=== PATIENT | male | born 1945 | race Caucasian/White ===

== ENCOUNTER 2018-10-18 09:19 | Day surgery (SDC) | payer OTHER ==
[~2018-10-18] VITALS: Ht 172.7 cm; Wt 74.2 kg
[~2018-10-18 09:19] MED LIST: CYCL10 PO; GLUC500 PO; HYDACE5 PO; HYDCHL25 PO; OXYACE5T PO; ZESTORETIC 20-121 EA PO
[2018-10-18] MEDS ORDERED: VALACYCLOVIR1000 MG (10:14)
== END 2018-10-18 13:23 | disposition home or self-care (01) ==
LOC: ORSCSDS 09:19
PROVIDERS: Orthopaedic Surgery
PROC: 01X40Z4 Transfer Ulnar Nerve to Ulnar Nerve, Open Approach (ICD-10-PCS; principal; 2018-10-18 10:30)
DX: G56.21 Lesion of ulnar nerve, right upper limb (principal); I10 Essential (primary) hypertension; Z79.899 Other long term (current) drug therapy
CPT/HCPCS: J0171; J0690; J2250; J2704; J3010; J7120

== ENCOUNTER 2018-12-29 15:38 | Emergency (ER) | payer OTHER ==
[~2018-12-29] VITALS: Ht 180.3 cm; Wt 74.8 kg
[~2018-12-29 15:38] MED LIST changes: +VALACYCLOVIR1000 MG
== END 2018-12-29 18:04 | disposition home or self-care (01) ==
LOC: ER 15:38
DX: S83.92XA Sprain of unspecified site of left knee, initial encounter (principal); I10 Essential (primary) hypertension; Z79.899 Other long term (current) drug therapy; W18.39XA Other fall on same level, initial encounter
CPT/HCPCS: 73562-LT; 99283-25

== ENCOUNTER 2019-12-23 15:40 | Emergency (ER) | payer OTHER ==
[~2019-12-23] VITALS: Ht 175.3 cm; Wt 74.8 kg
== END 2019-12-23 16:56 | disposition home or self-care (01) ==
LOC: ER 15:40
DX: S06.0X1A Concussion with loss of consciousness of 30 minutes or less, initial encounter (principal); S16.1XXA Strain of muscle, fascia and tendon at neck level, initial encounter; I10 Essential (primary) hypertension; Z79.899 Other long term (current) drug therapy; W01.10XA Fall on same level from slipping, tripping and stumbling with subsequent striking against unspecified object, initial encounter
CPT/HCPCS: 70450; 72125; 99284-25

== ENCOUNTER 2020-03-17 06:22 | Day surgery (SDC) | payer OTHER ==
[~2020-03-17] VITALS: Ht 177.8 cm; Wt 79.2 kg
[~2020-03-17 06:22] MED LIST changes: +VITAMIN D310 MC4 PO
--- NOTE | 2020-03-17 07:07 | NUR ---
Ambulatory in Day Surgery History, Chart, Medications and Allergies reviewed before start of procedure. Lungs clear T/O to Auscultation. Pre-Op teaching done. Pt verbalizes understanding.
--- NOTE | 2020-03-17 12:07 | NUR ---
PT ARRIVED TO UNIT FROM PACU. A&OX4. DENIES PAIN, N/V OR SOB. SLIGHT GROSS MOVEMENT NOTED TO LLE. PT REPORTS NUMBNESS FROM KNEES DOWN. DRESSING TO L KNEE CDI. POLAR PACK IN PLACE. CALL LIGHT IN REACH.
--- NOTE | 2020-03-17 13:25 | NUR ---
PT ABLE TO LIFT LEFT OFF OF BED AND WIGGLE TOES.
--- NOTE | 2020-03-17 16:03 | NUR ---
MEDICATED PT PER ORDERS FOR PAIN. THERAPY IN TO WORK W/PT.
--- NOTE | 2020-03-17 16:16 | NUR ---
AMBULATING IN [place] W/THERAPIST.
--- NOTE | 2020-03-17 16:59 | NUR ---
SUMMARY NO ACUTE CHANGES SINCE ARRIVING TO UNIT FROM PACU. WORKED W/THERAPY, AMBULATED IN [place] AND IS NOW SITTING IN RECLINER WITH LEGS ELEVATED. REPORTS PAIN 5-6/10; STATES THIS IS TOLERABLE AND DENIES NEED FOR FURTHER PAIN MEDS AT THIS TIME. TOLERATING DIET AND VOIDED. TXA COMPLETED PER ORDERS. ABX INFUSING NOW PER ORDERS. CALL LIGHT IN REACH.
--- NOTE | 2020-03-18 03:37 | NUR ---
SHIFT SUMMARY: POD 1 LEFT TOTAL KNEE REPLACEMENT LEFT KNEE AQUACEL IS C/D/I. PATIENT IS ALERT AND ORIENTED X4 WHILE AWAKE. PATIENT HAS BEEN SLEEPING MAJORITY OF THE SHIFT BUT IS EASILY AROUSABLE. PAIN REPORTS NOT HAVING PAIN BUT HAS BEEN GIVEN HIS SCHEDULED TYLENOL PO. HE IS VOIDING AND SHARI PO INTAKE. HE AMBULATED THE HALLS ONCE BEFORE FALLING ASLEEP. HE IS A SBA WITH GAIT BELT AND FWW. HE HAS RECIEVED HIS ABX IV AND SHARI WELL. HE HAS BEEN DOING HIS EXERCISES FROM PHYSICAL THERAPY. CALLS APPROPRIATELY. CALL LIGHT WITHIN REACH. PATIENT IS CURRENTLY SNORING LAYING IN BED. VS ARE WNL ON RA. THE PLAN IS TO POSSIBLY BE DISCHARGED HOME TODAY.
[2020-03-18 05:39] LABS: BASOPHILS ABSOLUTE AUTO 0.02 K/mm3 (0.00-0.23); BASOPHILS PERCENT AUTO 0 % (0-2); EOSINOPHILS ABSOLUTE AUTO 0.02 K/mm3 (0.00-0.68); EOSINOPHILS PERCENT AUTO 0 % (0-6); Hematocrit 27.2 % (37.0-53.0); Hemoglobin 8.6 g/dL (13.5-17.5); IMMATURE GRAN ABSOLUTE AUTO 0.02 K/mm3 (0.00-0.10); IMMATURE GRAN PERCENT AUTO 0 % (0-1); LYMPHOCYTES ABSOLUTE AUTO 0.84 K/mm3 (0.84-5.20); LYMPHOCYTES PERCENT AUTO 10 % (21-46); MONOCYTES ABSOLUTE AUTO 0.31 K/mm3 (0.16-1.47); MONOCYTES PERCENT AUTO 4 % (4-13); Mean Corpuscular HGB 29.6 pg (26.0-34.0); Mean Corpuscular HGB Conc 31.6 g/dL (31.5-36.5); Mean Corpuscular Volume 94 fL (80-100); Mean Platelet Volume 9.7 fL (9.1-12.4); NEUTROPHILS ABSOLUTE AUTO 7.37 K/mm3 (1.96-9.15); NEUTROPHILS PERCENT AUTO 86 % (41-73); Platelet Count 188 K/mm3 (150-400); RDW Coefficient Variation 13.6 % (11.7-14.2); RDW Standard Deviation 46.6 fL (35.1-46.3); Red Blood Cell Count 2.91 M/mm3 (4.30-5.90); White Blood Cell Count 8.58 K/mm3 (4.00-11.30)
[2020-03-18 06:00] LABS: Bun/Creatinine Ratio 23.8 (12.0-20.0); Calcium, Blood 8.7 mg/dL (8.5-10.1); Creatinine, Blood 1.51 mg/dL (0.60-1.20); Potassium, Blood 4.3 mmol/L (3.5-5.5)
[2020-03-18] MEDS ORDERED: ACET500 PO (09:50)
[2020-03-18] MEDS ORDERED: OXYC5 PO (09:50)
[2020-03-18] MEDS ORDERED: ASPI81CH PO (09:50)
--- NOTE | 2020-03-18 11:22 | NUR ---
discharged IV DC'D, CATHETER INTACT. DC INSTRUCTIONS REVIEWED BY CATHERINE VELÁSQUEZ. PT VERBALIZED UNDERSTANDING. PT LEFT UNIT IN WC W/POSSESSIONS, POLAR PACK, DRESSINGS, AND DC INSTRUCTIONS IN HAND TO RIDE AWAITING OUTSIDE.
--- NOTE | 2020-03-18 13:27 | NUR ---
03/18/20 1327 Bernadette Maxwell VERIFICATIONS: EDIT CHART.
== END 2020-03-18 11:16 | disposition home or self-care (01) ==
LOC: ORSCMMR 06:22 → ORD 07:30 → ORSCMMR 07:30 → SURS 11:40 → ORSCMMR 03-18 11:16
PROVIDERS: Orthopaedic Surgery
PROC: 8E0Y0CZ Robotic Assisted Procedure of Lower Extremity, Open Approach (ICD-10-PCS; principal; 2020-03-17 07:30)
PROC: 0SRD0J9 Replacement of Left Knee Joint with Synthetic Substitute, Cemented, Open Approach (ICD-10-PCS; principal; 2020-03-17 07:30)
DX: M17.12 Unilateral primary osteoarthritis, left knee (principal); Z23 Encounter for immunization; I10 Essential (primary) hypertension; N18.9 Chronic kidney disease, unspecified; Z79.899 Other long term (current) drug therapy
CPT/HCPCS: 27447; S2900; 36415; 73560-LT; 80048; 83735; 85025; 88300; 97110; 97110-CQ; 97116; 97116-CQ; 97162; 97530-CQ; A9270; C1713; C1776; G0008; J0171; J0690; J0735; J1100; J1885; J2250; J2370; J2405; J2704; J2795; J3010; J7120; Q2038

== ENCOUNTER 2020-05-20 06:59 | Day surgery (SDC) | payer OTHER ==
[~2020-05-20] VITALS: Ht 172.7 cm; Wt 74.7 kg
[~2020-05-20 06:59] MED LIST changes: +ACET500 PO; +ASPI81CH PO; +OXYC5 PO
[2020-05-20] MEDS ORDERED: GLUC500 (07:35)
== END 2020-05-20 09:18 | disposition home or self-care (01) ==
LOC: ORSCSDS 06:59
PROVIDERS: Student in an Organized Health Care Education/Training Program
PROC: 0DBL8ZX Excision of Transverse Colon, Via Natural or Artificial Opening Endoscopic, Diagnostic (ICD-10-PCS; principal; 2020-05-20 08:00)
DX: Z12.11 Encounter for screening for malignant neoplasm of colon (principal); D12.3 Benign neoplasm of transverse colon; K57.30 Diverticulosis of large intestine without perforation or abscess without bleeding; K64.8 Other hemorrhoids; K64.4 Residual hemorrhoidal skin tags; D64.9 Anemia, unspecified; I10 Essential (primary) hypertension; E55.9 Vitamin D deficiency, unspecified; Z79.899 Other long term (current) drug therapy
CPT/HCPCS: 88305; J0330; J0461; J2405; J2704; J7120

== ENCOUNTER 2020-07-10 17:10 | Emergency (ER) | payer OTHER ==
[~2020-07-10] VITALS: Ht 175.3 cm; Wt 74.8 kg
[~2020-07-10 17:10] MED LIST changes: +GLUC500
[2020-07-10 17:41] LABS: BASOPHILS ABSOLUTE AUTO 0.02 K/mm3 (0.00-0.23); BASOPHILS PERCENT AUTO 1 % (0-2); EOSINOPHILS ABSOLUTE AUTO 0.19 K/mm3 (0.00-0.68); EOSINOPHILS PERCENT AUTO 5 % (0-6); Hematocrit 32.1 % (37.0-53.0); IMMATURE GRAN ABSOLUTE AUTO 0.01 K/mm3 (0.00-0.10); IMMATURE GRAN PERCENT AUTO 0 % (0-1); LYMPHOCYTES ABSOLUTE AUTO 0.94 K/mm3 (0.84-5.20); LYMPHOCYTES PERCENT AUTO 22 % (21-46); MONOCYTES ABSOLUTE AUTO 0.42 K/mm3 (0.16-1.47); MONOCYTES PERCENT AUTO 10 % (4-13); Mean Corpuscular HGB Conc 31.2 g/dL (31.5-36.5); Mean Corpuscular Volume 90 fL (80-100); Mean Platelet Volume 9.1 fL (9.1-12.4); NEUTROPHILS ABSOLUTE AUTO 2.61 K/mm3 (1.96-9.15); NEUTROPHILS PERCENT AUTO 62 % (41-73); Platelet Count 267 K/mm3 (150-400); RDW Coefficient Variation 18.2 % (11.7-14.2); RDW Standard Deviation 60.4 fL (35.1-46.3); Red Blood Cell Count 3.57 M/mm3 (4.30-5.90); White Blood Cell Count 4.19 K/mm3 (4.00-11.30)
[2020-07-10 18:02] LABS: Alanine Aminotransfer (ALT/SGP 24 U/L (12-78); Albumin, Blood 3.4 g/dL (3.4-5.0); Albumin/Globulin Ratio 0.9 (0.8-1.8); Alk Phos 130 U/L (50-136); Anion Gap 4 mmol/L (6-16); Aspartate Aminotrans (AST/SGOT 19 U/L (12-37); Bilirubin, Total 0.3 mg/dL (0.1-1.0); Blood Urea Nitrogen 23 mg/dL (8-24); Bun/Creatinine Ratio 17.8 (12.0-20.0); CO2, Blood 27 mmol/L (21-32); Chloride, Blood 109 mmol/L (98-108); Creatinine, Blood 1.29 mg/dL (0.60-1.20); Globulin, Blood 3.8 g/dL (2.2-4.0); Glomerular Filtration Rate 58 (60-); Glucose, Blood 95 mg/dL (70-99); Potassium, Blood 4.1 mmol/L (3.5-5.5); Sodium, Blood 140 mmol/L (136-145); Total Protein, Blood 7.2 g/dL (6.4-8.2); Troponin I <0.015 ng/mL (0.000-0.040)
[2020-07-10] MEDS ORDERED: OXYM.05NI (21:58)
[2020-07-10] MEDS ORDERED: Flonase 0.05% N16 GM (21:58)
== END 2020-07-10 22:10 | disposition home or self-care (01) ==
LOC: ER 17:10
PROVIDERS: Physician Assistant
DX: J32.2 Chronic ethmoidal sinusitis (principal); R51.9 Headache, unspecified; Z79.899 Other long term (current) drug therapy; V89.2XXA Person injured in unspecified motor-vehicle accident, traffic, initial encounter
CPT/HCPCS: 70450; 80053; 84484; 85025; 93005; 93010; 99284-25; A9270

== ENCOUNTER 2020-12-29 06:16 | Inpatient (IN) | payer OTHER ==
[~2020-12-29] VITALS: Ht 175.3 cm; Wt 78.4 kg
[~2020-12-29 06:16] MED LIST changes: +FERSU300 PO; +Flomax0.4 MG PO; +Flonase 0.05% N16 GM; +Lisinopril-Hct1 EAC4 PO; +MAGNESIUM PO; +MIRALAX17 GM PO; +NAPR220 PO; +OXYM.05NI; +PEPCID40 MG PO
--- NOTE | 2020-12-29 07:27 | NUR ---
Ambulatory in Day SurgeryB[facility] Paws warming gown applied. Surgical site prepped with 2% Chlorhexidine cloth wipe. History, Chart, Medications and Allergies reviewed before start of procedure.Lungs clear T/O to Auscultation. Patient confirms NPO status and agrees with scheduled surgery. Patient reports completing Chlorhexadine shower X2 prior to admission to hospital.
--- NOTE | 2020-12-29 08:25 | NUR ---
PATIENT'S ANSTIENOLGIST ORDERED A A1C FOR THE PATIENT, RESULTS WEE BACK AT 0823, CALLED THE OR CREW AND MADE THEM AWARE.
--- NOTE | 2020-12-29 09:38 | NUR ---
12/29/20 0938 Himanshu Keller DRY SCAB NOTED ON ANTERIOR UPPER ARM. MD NOTIFIED, NO NEW ORDERS. DR. GIRON PERFORMED BLOCK IN OR PRE OPERATIVELY.
[2020-12-29] MEDS ORDERED: OXYC5 PO (16:15)
--- NOTE | 2020-12-29 17:35 | NUR ---
DISCHARGE CLEARED THERAPY, EATING, DRINKING, & VOIDING. PAIN WELL TOLERABLE & PT EDUCATED THAT PAIN WILL INCREASE w/ TIME. STRESSED IMPORTANCE OF ICE & ELEVATION. DRSAJ, SCRIPT, & POLAR PACK SENT w/ PT. ESCORTED OUT VIA W/C
== END 2020-12-29 17:30 | disposition home or self-care (01) | DRG 483 ==
LOC: SURS 06:16 → PRE IP 07:30 → SURS 14:25
PROVIDERS: ADMIT Orthopaedic Surgery
PROC: 0RRK00Z Replacement of Left Shoulder Joint with Reverse Ball and Socket Synthetic Substitute, Open Approach (ICD-10-PCS; principal; 2020-12-29 07:30)
DX: M12.812 Other specific arthropathies, not elsewhere classified, left shoulder (principal); M75.122 Complete rotator cuff tear or rupture of left shoulder, not specified as traumatic; D63.1 Anemia in chronic kidney disease; I12.9 Hypertensive chronic kidney disease with stage 1 through stage 4 chronic kidney disease, or unspecified chronic kidney disease; N18.9 Chronic kidney disease, unspecified; N40.0 Benign prostatic hyperplasia without lower urinary tract symptoms; K21.9 Gastro-esophageal reflux disease without esophagitis; Z20.822 Contact with and (suspected) exposure to COVID-19
CPT/HCPCS: 73030; 82947; 83036; 97110; 97161; 97530; A9270; C1776; J0171; J0690; J0735; J1100; J1885; J2250; J2370; J2405; J2704; J2795; J3010; J7120

== ENCOUNTER 2022-03-22 10:12 | Day surgery (SDC) | payer OTHER ==
[~2022-03-22] VITALS: Ht 172.7 cm; Wt 77.5 kg
[~2022-03-22 10:12] MED LIST changes: +ATOR40TA PO; +Acetaminophen650 M1 PO; +NAPR220; +TOCO1000 PO
--- NOTE | 2022-03-22 16:02 | NUR ---
PT ARRIVED TO UNIT FROM PACU. UNABLE TO WIGGLE TOES. DENIES FEELING FROM THIGH DOWN. WILL AMBULATE ONCE PATIENT BEGINS HAVING SENSATION. BLADDER SCAN PRN R/T SPINAL. AQUACEL DRESSING CDI. POLAR ESPERANZA IN PLACE PT [id number], VSS. PT TOLERATING PO WELL PROVIDED WATER AND JELLO AT THIS TIME.
--- NOTE | 2022-03-22 18:40 | NUR ---
PT UP AND AMBULATING. FULL SENSATION IN LEGS. PT WALKS QUICKLY AND NEEDS TO BE REMINDED TO SLOW DOWN AND STAY IN HIS WALKER. ABLE TO VOID, 50ML BUT HAD A POST VOID RESIDUAL OF 68. HE REPORTS FREQUENT SMALL VOIDS DURING NIGHT AT BASELINE. IV FLUIDS INFUSING AT THIS TIME. CONTINUES TO DENY PAIN. DRESSING CDI.
[2022-03-23 04:16] LABS: BASOPHILS ABSOLUTE AUTO 0.02 K/mm3 (0.00-0.23); BASOPHILS PERCENT AUTO 0 % (0-2); EOSINOPHILS ABSOLUTE AUTO 0.07 K/mm3 (0.00-0.68); EOSINOPHILS PERCENT AUTO 1 % (0-6); Hematocrit 31.7 % (37.0-53.0); Hemoglobin 10.5 g/dL (13.5-17.5); IMMATURE GRAN ABSOLUTE AUTO 0.04 K/mm3 (0.00-0.10); IMMATURE GRAN PERCENT AUTO 0 % (0-1); LYMPHOCYTES ABSOLUTE AUTO 0.65 K/mm3 (0.84-5.20); LYMPHOCYTES PERCENT AUTO 7 % (21-46); MONOCYTES ABSOLUTE AUTO 0.47 K/mm3 (0.16-1.47); MONOCYTES PERCENT AUTO 5 % (4-13); Mean Corpuscular HGB 31.4 pg (26.0-34.0); Mean Corpuscular HGB Conc 33.1 g/dL (31.5-36.5); Mean Corpuscular Volume 95 fL (80-100); NEUTROPHILS ABSOLUTE AUTO 8.23 K/mm3 (1.96-9.15); NEUTROPHILS PERCENT AUTO 87 % (41-73); Platelet Count 159 K/mm3 (150-400); RDW Coefficient Variation 13.2 % (11.7-14.2); Red Blood Cell Count 3.34 M/mm3 (4.30-5.90); White Blood Cell Count 9.48 K/mm3 (4.00-11.30)
--- NOTE | 2022-03-23 04:40 | NUR ---
POD1 RIGHT TOTAL KNEE. SENSATION AND CIRCULATION REMAINS INTACT IN RLE. DRESSING IS C/D/I. VSS. PT SLEPT WELL T/O THE NIGHT. MEDICATED FOR PAIN WITH SCHEDULED AND OXY. PT AMBULATED IN THE HALLS LAST NIGHT WITH THE MEDICAL STAFF SPECIALIST. PT TOLLERATING PO INTAKE W/O N/V. PT VOIDED WITH SOME DIFFICULT, PT STATED AT HOME HE VOIDS SMALL AMOUNTS VERY FREQUENTLY. PLAN FOR PT TO WORK WITH PT THIS AM AND D/C HOME. THE PATIENT IS CURRENTLY SLEEPING, IN NO DISTRESS, CALL LIGHT IN REACH
[2022-03-23 04:52] LABS: Bun/Creatinine Ratio 22.7 (12.0-20.0); Calcium, Blood 8.2 mg/dL (8.5-10.1); Creatinine, Blood 1.41 mg/dL (0.60-1.20); Magnesium, Blood 1.7 mg/dL (1.6-2.4)
[2022-03-23] MEDS ORDERED: ASPI81CH PO (10:14)
[2022-03-23] MEDS ORDERED: OXYC5 PO (10:14)
--- NOTE | 2022-03-23 10:50 | NUR ---
DISCHARGE PATIENT CLEARED THERAPY WELL. AQUACEL TO RIGHT KNEE IS C/D/I. PAIN REPORTED TO BE TOELRABLE PER PATIENT, MEDICATED PER EMAR. EATING, DRINKING, & VOIDING WELL. AMBULATING WELL W/ FWW & GB. DISCUSSED DISCHARGE INSTRUCTIONS, PATIENT DENIES QUESTIONS AT THIS TIME. SENT WITH PATIENT WELL POLAR PACK AND AQUACEL DRESSINGS. ESCORTED OUT VIA W/C.
== END 2022-03-23 10:43 | disposition home or self-care (01) ==
LOC: ORSCMMR 10:12 → ORD 12:00 → ORSCMMR 12:00 → SURS 14:46 → ORSCMMR 03-23 10:43 → ORD 03-29 10:45
PROVIDERS: Orthopaedic Surgery
PROC: 8E0Y0CZ Robotic Assisted Procedure of Lower Extremity, Open Approach (ICD-10-PCS; principal; 2022-03-22 12:30)
PROC: 0SRC0JA Replacement of Right Knee Joint with Synthetic Substitute, Uncemented, Open Approach (ICD-10-PCS; principal; 2022-03-22 12:30)
DX: M17.11 Unilateral primary osteoarthritis, right knee (principal); I12.9 Hypertensive chronic kidney disease with stage 1 through stage 4 chronic kidney disease, or unspecified chronic kidney disease; N18.9 Chronic kidney disease, unspecified; Z79.899 Other long term (current) drug therapy
CPT/HCPCS: 27447; 0055T; S2900; 36415; 73560-RT; 80048; 83735; 85025; 86850; 86900; 86901; 97110; 97116; 97161; 97530; A9270; C1776; J0171; J0690; J0735; J1885; J2370; J2704; J2765; J2795; J3010; J7120

== ENCOUNTER → 2022-10-19 | Outpatient (CLI) | payer OTHER ==
[2022-10-19 17:39] LABS: BASOPHILS ABSOLUTE AUTO 0.02 K/mm3 (0.00-0.23); BASOPHILS PERCENT AUTO 1 % (0-2); EOSINOPHILS ABSOLUTE AUTO 0.16 K/mm3 (0.00-0.68); EOSINOPHILS PERCENT AUTO 4 % (0-6); Hemoglobin 11.5 g/dL (13.5-17.5); IMMATURE GRAN ABSOLUTE AUTO 0.01 K/mm3 (0.00-0.10); IMMATURE GRAN PERCENT AUTO 0 % (0-1); LYMPHOCYTES ABSOLUTE AUTO 0.77 K/mm3 (0.84-5.20); LYMPHOCYTES PERCENT AUTO 18 % (21-46); MONOCYTES PERCENT AUTO 9 % (4-13); Mean Corpuscular HGB 31.9 pg (26.0-34.0); Mean Corpuscular HGB Conc 32.9 g/dL (31.5-36.5); Mean Corpuscular Volume 97 fL (80-100); NEUTROPHILS ABSOLUTE AUTO 3.05 K/mm3 (1.96-9.15); NEUTROPHILS PERCENT AUTO 69 % (41-73); Platelet Count 206 K/mm3 (150-400); RDW Coefficient Variation 13.8 % (11.7-14.2); RDW Standard Deviation 49.5 fL (35.1-46.3); Red Blood Cell Count 3.61 M/mm3 (4.30-5.90); White Blood Cell Count 4.41 K/mm3 (4.00-11.30)
[2022-10-19 17:58] LABS: Magnesium, Blood 2.3 mg/dL (1.6-2.4)
[2022-10-19 18:04] LABS: Albumin, Blood 3.8 g/dL (3.4-5.0); Albumin/Globulin Ratio 1.3 (0.8-1.8); Bilirubin, Total 0.3 mg/dL (0.1-1.0); Bun/Creatinine Ratio 29.5 (12.0-20.0); Calcium, Blood 9.5 mg/dL (8.5-10.1); Creatinine, Blood 1.29 mg/dL (0.60-1.20); Globulin, Blood 2.9 g/dL (2.2-4.0); Potassium, Blood 4.4 mmol/L (3.5-5.5); Thyroid Stimulating Hormone 1.78 uIU/mL (0.360-4.800); Total Protein, Blood 6.7 g/dL (6.4-8.2)
== END ==
LOC: LAB 14:33 → LAB SHORT 14:33
PROVIDERS: Physician Assistant
DX: I10 Essential (primary) hypertension (principal)
CPT/HCPCS: 80053; 83735; 84443; 85025

== ENCOUNTER 2022-10-20 10:13 | Emergency (ER) | payer OTHER ==
[~2022-10-20] VITALS: Ht 175.3 cm; Wt 77.1 kg
[2022-10-20 11:00] LABS: BASOPHILS ABSOLUTE AUTO 0.03 K/mm3 (0.00-0.23); BASOPHILS PERCENT AUTO 1 % (0-2); EOSINOPHILS ABSOLUTE AUTO 0.23 K/mm3 (0.00-0.68); EOSINOPHILS PERCENT AUTO 4 % (0-6); Hematocrit 37.7 % (37.0-53.0); Hemoglobin 12.3 g/dL (13.5-17.5); IMMATURE GRAN ABSOLUTE AUTO 0.02 K/mm3 (0.00-0.10); IMMATURE GRAN PERCENT AUTO 0 % (0-1); LYMPHOCYTES ABSOLUTE AUTO 0.73 K/mm3 (0.84-5.20); LYMPHOCYTES PERCENT AUTO 12 % (21-46); MONOCYTES ABSOLUTE AUTO 0.37 K/mm3 (0.16-1.47); MONOCYTES PERCENT AUTO 6 % (4-13); Mean Corpuscular HGB 31.8 pg (26.0-34.0); Mean Corpuscular HGB Conc 32.6 g/dL (31.5-36.5); Mean Corpuscular Volume 97 fL (80-100); Mean Platelet Volume 9.8 fL (9.1-12.4); NEUTROPHILS ABSOLUTE AUTO 4.53 K/mm3 (1.96-9.15); NEUTROPHILS PERCENT AUTO 77 % (41-73); Platelet Count 191 K/mm3 (150-400); RDW Coefficient Variation 13.7 % (11.7-14.2); RDW Standard Deviation 49.7 fL (35.1-46.3); Red Blood Cell Count 3.87 M/mm3 (4.30-5.90); White Blood Cell Count 5.91 K/mm3 (4.00-11.30)
[2022-10-20 11:26] LABS: Albumin, Blood 3.6 g/dL (3.4-5.0); Albumin/Globulin Ratio 1.2 (0.8-1.8); Bilirubin, Total 0.5 mg/dL (0.1-1.0); Bun/Creatinine Ratio 29.3 (12.0-20.0); Calcium, Blood 9.1 mg/dL (8.5-10.1); Creatinine, Blood 1.16 mg/dL (0.60-1.20); Globulin, Blood 3.1 g/dL (2.2-4.0); Potassium, Blood 4.2 mmol/L (3.5-5.5); Total Protein, Blood 6.7 g/dL (6.4-8.2)
[2022-10-20 12:30] VITALS: BP 163/84
== END 2022-10-20 12:57 | disposition home or self-care (01) ==
LOC: ER 10:13
PROVIDERS: Physician Assistant
DX: I10 Essential (primary) hypertension (principal); R42 Dizziness and giddiness; Z79.899 Other long term (current) drug therapy; Z79.82 Long term (current) use of aspirin
CPT/HCPCS: 71046; 80053; 83735; 84484; 85025; 93005; 93010; 99284-25; J7030

== ENCOUNTER → 2024-12-24 | Outpatient (CLI) | payer OTHER ==
[2024-12-24 12:39] LABS: BASOPHILS ABSOLUTE AUTO 0.02 K/mm3 (0.00-0.23); BASOPHILS PERCENT AUTO 0 % (0-2); EOSINOPHILS ABSOLUTE AUTO 0.12 K/mm3 (0.00-0.68); EOSINOPHILS PERCENT AUTO 2 % (0-6); Hematocrit 38.7 % (37.0-53.0); Hemoglobin 12.6 g/dL (13.5-17.5); IMMATURE GRAN ABSOLUTE AUTO 0.01 K/mm3 (0.00-0.10); IMMATURE GRAN PERCENT AUTO 0 % (0-1); LYMPHOCYTES ABSOLUTE AUTO 0.78 K/mm3 (0.84-5.20); LYMPHOCYTES PERCENT AUTO 15 % (21-46); MONOCYTES ABSOLUTE AUTO 0.30 K/mm3 (0.16-1.47); MONOCYTES PERCENT AUTO 6 % (4-13); Mean Corpuscular HGB Conc 32.6 g/dL (31.5-36.5); Mean Corpuscular Volume 101 fL (80-100); NEUTROPHILS ABSOLUTE AUTO 3.99 K/mm3 (1.96-9.15); NEUTROPHILS PERCENT AUTO 77 % (41-73); NRBC ABSOLUTE 0.00 K/mm3 (0.00-0.02); NRBC Auto 0.0 /100 WBC (0.0-0.2); Platelet Count 193 K/mm3 (150-400); RDW Coefficient Variation 13.6 % (11.7-14.2); RDW Standard Deviation 50.5 fL (35.1-46.3)
[2024-12-24 12:51] LABS: Alanine Aminotransfer (ALT/SGP 52.0 U/L (12-78); Albumin, Blood 3.7 g/dL (3.4-5.0); Albumin/Globulin Ratio 1.2 (0.8-1.8); Anion Gap 8.0 mmol/L (3-11); Aspartate Aminotrans (AST/SGOT 30.0 U/L (12-37); Bilirubin, Total 0.6 mg/dL (0.1-1.0); Blood Urea Nitrogen 17.0 mg/dL (8-24); CO2, Blood 31.0 mmol/L (21-32); Calcium, Blood 9.2 mg/dL (8.5-10.1); Chloride, Blood 104.0 mmol/L (98-108); Creatinine, Blood 1.21 mg/dL (0.60-1.20); Globulin, Blood 3.2 g/dL (2.2-4.0); Glucose, Blood 92.0 mg/dL (70-99); Potassium, Blood 4.4 mmol/L (3.5-5.5); Sodium, Blood 139.0 mmol/L (136-145); Total Protein, Blood 6.9 g/dL (6.4-8.2)
== END ==
LOC: LAB 12:34 → LAB SHORT 12:34
PROVIDERS: Physician Assistant
DX: R07.9 Chest pain, unspecified (principal)
CPT/HCPCS: 80053; 83690; 84484; 85025

== ENCOUNTER 2025-01-02 23:34 | Emergency (ER) | payer OTHER, MEDICARE ==
[~2025-01-02] VITALS: Ht 175.3 cm; Wt 77.1 kg
[2025-01-03 00:17] LABS: BASOPHILS ABSOLUTE AUTO 0.03 K/mm3 (0.00-0.23); BASOPHILS PERCENT AUTO 1 % (0-2); EOSINOPHILS ABSOLUTE AUTO 0.20 K/mm3 (0.00-0.68); EOSINOPHILS PERCENT AUTO 4 % (0-6); Hematocrit 39.5 % (37.0-53.0); Hemoglobin 12.8 g/dL (13.5-17.5); IMMATURE GRAN ABSOLUTE AUTO 0.01 K/mm3 (0.00-0.10); IMMATURE GRAN PERCENT AUTO 0 % (0-1); LYMPHOCYTES ABSOLUTE AUTO 1.06 K/mm3 (0.84-5.20); LYMPHOCYTES PERCENT AUTO 20 % (21-46); MONOCYTES ABSOLUTE AUTO 0.45 K/mm3 (0.16-1.47); MONOCYTES PERCENT AUTO 8 % (4-13); Mean Corpuscular HGB Conc 32.4 g/dL (31.5-36.5); Mean Corpuscular Volume 101 fL (80-100); NEUTROPHILS ABSOLUTE AUTO 3.61 K/mm3 (1.96-9.15); NEUTROPHILS PERCENT AUTO 67 % (41-73); NRBC ABSOLUTE 0.00 K/mm3 (0.00-0.02); NRBC Auto 0.0 /100 WBC (0.0-0.2); Platelet Count 191 K/mm3 (150-400); RDW Coefficient Variation 13.6 % (11.7-14.2); RDW Standard Deviation 49.9 fL (35.1-46.3)
[2025-01-03 00:52] LABS: Alanine Aminotransfer (ALT/SGP 45.0 U/L (12-78); Albumin, Blood 3.7 g/dL (3.4-5.0); Albumin/Globulin Ratio 1.2 (0.8-1.8); Anion Gap 8.0 mmol/L (3-11); Aspartate Aminotrans (AST/SGOT 30.0 U/L (12-37); Bilirubin, Total 0.4 mg/dL (0.1-1.0); Blood Urea Nitrogen 19.0 mg/dL (8-24); CO2, Blood 28.0 mmol/L (21-32); Calcium, Blood 8.9 mg/dL (8.5-10.1); Chloride, Blood 105.0 mmol/L (98-108); Creatinine, Blood 1.06 mg/dL (0.60-1.20); Globulin, Blood 3.2 g/dL (2.2-4.0); Glucose, Blood 90.0 mg/dL (70-99); Potassium, Blood 4.1 mmol/L (3.5-5.5); Sodium, Blood 137.0 mmol/L (136-145); Total Protein, Blood 6.9 g/dL (6.4-8.2)
[2025-01-03 01:00] VITALS: BP 174/97
== END 2025-01-03 01:20 | disposition home or self-care (01) ==
LOC: ER 23:34
PROVIDERS: Emergency Medicine
DX: I10 Essential (primary) hypertension (principal); Z79.899 Other long term (current) drug therapy
CPT/HCPCS: 80053; 84484; 85025; 93005; 93010; 99283-25; A9270